=== PATIENT | female | born 2000 | race African-American/Black ===

== ENCOUNTER 2022-06-24 02:59 | Emergency (ER) | payer SELFPAY ==
[~2022-06-24] VITALS: Ht 165.1 cm; Wt 87.6 kg
[2022-06-24] MEDS ORDERED: KETOROLAC 60MG/2ML VIAL IM ONE (04:30)
[2022-06-24] MEDS ORDERED: DIPHENHYDRAMINE 25MG CAPSULE PO ONE (04:30)
[2022-06-24] MEDS ORDERED: PROCHLORPERAZINE 10MG/2ML VIAL IM ONE (04:30)
[2022-06-24 04:40] VITALS: BP 121/56
== END 2022-06-24 05:48 | disposition home or self-care (01) ==
LOC: ER 02:59
DX: G43.909 Migraine, unspecified, not intractable, without status migrainosus (principal)
CPT/HCPCS: 96372; 99284; J0780; J1885; Q0163

== ENCOUNTER 2022-12-16 04:11 | Emergency (ER) | payer MEDICAID, OTHER ==
[2022-12-16 04:22] VITALS: BP 155/78; PULSE 94; RESP 16
== END 2022-12-16 05:07 | disposition left against medical advice (07) ==
LOC: ER 04:11
DX: Z53.21 Procedure and treatment not carried out due to patient leaving prior to being seen by health care provider (principal)
CPT/HCPCS: 99281